=== PATIENT | male | born 1940 ===

== ENCOUNTER 2017-05-04 15:33 | Outpatient (CLI) | payer MEDICARE ==
[2017-05-04 16:26] LABS: Hemoglobin 12.1 g/dL (14.0-18.0)
[2017-05-04 16:42] LABS: Anion Gap 18 mmol/L (10-20); BUN (Urea Nitrogen) 63 mg/dL (8.4-25.7); Calc. Creatinine Clearance 0 mL/min (70-130); Calcium 9.2 mg/dL (7.8-10.44); Carbon Dioxide 19 mmol/L (23-31); Chloride 109 mmol/L (98-107); Estimated GFR-MDRD 13; Glucose 97 mg/dL (83-110); Potassium 5.2 mmol/L (3.5-5.1); Sodium 141 mmol/L (136-145)
[2017-05-04 16:59] LABS: Follow-up Chemistry Comp? YES; Follow-up Result - Chemistry REPORT FAXED
== END 2017-05-04 15:34 | disposition home or self-care (01) ==
LOC: NAV LABSP 15:33
PROVIDERS: ATTEND Internal Medicine Nephrology
DX: I12.9 Hypertensive chronic kidney disease with stage 1 through stage 4 chronic kidney disease, or unspecified chronic kidney disease (principal); N18.5 Chronic kidney disease, stage 5
CPT/HCPCS: 36415; 80048; 85014; 85018